=== PATIENT | male | born 2000 | race Caucasian/White ===

== ENCOUNTER → 2023-10-15 | Outpatient (CLI) | payer SELFPAY ==
--- NOTE | 2023-10-15 12:52 | MRI_ITS ---
STUDY: MRI RIGHT KNEE REASON FOR EXAM: Male, 22 years old. Pain. TECHNIQUE: Standardized fat and water weighted pulse sequences were obtained in all 3 orthogonal planes. COMPARISON: Right knee radiographs dated 09/08/2023. FINDINGS: There is a bucket handle tear of the medial meniscus, with a displaced meniscal fragment within the intercondylar notch. Normal hyaline cartilage of the medial femorotibial compartment. Normal medial femoral condyle and tibial plateau. Normal medial collateral ligamentous complex (MCL). Normal distal semimembranosus, gracilis and semitendinosus tendons. Normal lateral meniscus. Normal hyaline cartilage of the lateral femorotibial compartment. Normal lateral femoral condyle and tibial plateau. Normal proximal tibiofibular articulation. Normal lateral collateral ( fibular ) ligament. Normal popliteus tendon. Normal biceps femoris tendon. Normal anterior cruciate ligament (ACL). Normal posterior cruciate ligament (PCL). Normal congruent patellofemoral articulation. Normal hyaline cartilage of the patellofemoral compartment. Normal medial and lateral patellar retinaculum. Normal quadriceps tendon. Normal patellar tendon. Normal Hoffa''s fat pad. There is a moderate volume joint effusion. There is no popliteal cyst. The soft tissues are unremarkable. The otherwise visualized osseous structures are unremarkable. MRI/Lower Ext Joint Only (Routine) IMPRESSION: Bucket-handle tear of the medial meniscus, with a displaced meniscal fragment within the intercondylar notch. Moderate joint effusion. Electronically Signed: Michael Gutierrez MD at 14:12 EST ,
== END | disposition home or self-care (01) ==
PROVIDERS: Referring Provider Orthopaedic Surgery; Visit Provider Orthopaedic Surgery
DX: S83.241A Other tear of medial meniscus, current injury, right knee, initial encounter (principal)
CPT/HCPCS: 73721

== ENCOUNTER 2023-11-16 09:39 | Day surgery (SDC) | payer SELFPAY, OTHER ==
[2023-11-16] VITALS (7 sets, daily range): BP systolic 108–122; BP diastolic 62–77; PULSE 66–89; RESP 16–18; TEMP 36.6–37; O2SAT 99–100; BMI 23.6
[2023-11-16] MEDS: Lactated Ringers 1,000 ML 15 ML IV (10:06)
--- NOTE | 2023-11-16 10:43 | HP.PCM_ITS ---
History and Physical Date of Admission: 11/16/23 [facility] [address] [place] [address] OFFICE VISIT Date of Service: 10/13/23 MR#: [id number] Acct: [id number] Name: JENNY WARD Rep #: [id number] : 2000 Provider: Dr. Bob Verde DO Age/Sex: 22/M Location: [facility] Status: Signed Intake Vital Signs 09/08/2406:57 Height 6 ft 1 in Weight: 185 lb 8 oz BMI 24.5 Intake Visit Reasons: RIGHT KNEE Is patient in pain?: Yes Allergies No Known Allergies Allergy (Unverified 10/13/23 07:58) Medications NK 09/08/23 [History Confirmed 10/13/23] [facility] Social History (Updated 09/08/23 @ 08:02 by Kellee Pfeiffer) household members: family Smoking Status: Never smoker alcohol intake: never HPI RIGHT KNEE Details: This documentation accurately reflects the service provided and the decisions made by me, Dr. Bob Verde, 10/13/23 0748. Part of today?s visit was documented by Kellee MELÉNDEZ, acting as scribe. JENNY WARD is a 22 year old M here today for a followup on his right knee. To recall I did get his MRI report after his last visit and I did receive some of the images however they were not all on the desk. At the time I had a conversation on the phone with him as he was not having any symptoms we decided to let it be. He was doing very well until Patient states that he re-injured his knee playing football about 2 weeks ago (10/02/23). He was unsure of what exactly happened and he did not have a contact however he felt he may have t wisted his knee. He felt a pop at that time, and felt like his knee was locked. He states that he has locking of his knee and after a pop, he can flex his knee. He has subjective knee swelling currently. He has pain over his medial knee. Patient denies any icing or medications. Ortho Exam General General: Yes no acute distress Neurologic: Yes alert Psychologic: Yes reasonable and appropriate Right Knee Skin/Wound: Yes CDI, No erythema, No ecchymosis and No swelling Knee ROM: Yes ROM-Extension -20 to 0 (mild pain) and No ROM-Flexion 0-140 (120) Examination: No Med jt line tenderness, No Lat jt line tenderness, No Crepitus, No Pain with flexion, Yes Pain with extention and Yes Lele's Test Stability: NML: Anterior Drawer, NML: Agapito, NML: Posterior Drawer, NML: Valgus 0, NML: Valgus 30, NML: Varus 0 and NML: Varus 30 Patella Translation: 1 Patella Grind: No KNEE: pain with patellar grind, no patellar instability. Left Knee Patella Translation: 1 Head: Normocephalic Atraumatic Chest: symmetrical rise, non-labored breathing, no audible wheeze Abdomen: no guarding, non-rigid Supplemental Info 09/08/2023 x-ray right knee: No acute findings Coding Level of Care Code Off vis,est,level 3 Diagnoses Tear of medial meniscus of right knee, unspecified tear type, unspecified whether old or current tear, initial encounter S83.241A Encounter type: initial encounter Meniscus tear of knee type: unspecified type Tear current or old: unspecified Assessment and Plan Assessment and Plan (1) Tear of medial meniscus of right knee: Status: Acute Qualifiers: Encounter type: initial encounter Meniscus tear of knee type: unspecif ied type Tear current or old: unspecified Qualified Code(s): S83.241A - Other tear of medial meniscus, current injury, right knee, initial encounter Orders: Orders Lower Ext Joint Only (Routine) Today S83.241A - Other tear of medial meniscus, current injury, right knee, initial encounter Plan Spoke with the patient about a re-injury to his meniscus. He has the locking sensation due to the meniscus being torn. Recommended the patient get a new MRI prior to a possible surgery, as his last one was about 5 months ago and with a new injury and symptoms we want to be prepared for what to expect intraoperatively . He will likely need a meniscectomy vs a repair. Follow up after MRI or sooner if pain, swelling, numbness or associated symptoms, or concerns develop. All questions answered. Patient in agreement of plan. 10/13/23 0834 <Electronically signed by Bob Verde DO> Date Bob Verde DO I have examined the patient the following changes are noted: Repeat MRI was ordered redemonstrating bucket-handle tear medial meniscus tear thorough discussion was had with the patient over the phone in regards to this and recommendations for repair if possible considering his age however we discussed risk benefits and alternatives of repair versus meniscectomy and due to his age and job he does not wish to have a repair done that could increase his downtime postoperatively considering this is a chronic tear there is increased chance of failure after repair. He understands he is at increased risk for accelerated arthritis of the knee with partial meniscectomy and wishes to proceed with partial meniscectomy only.
[2023-11-16] MEDS: Cefazolin 2 GM in 0.9% Normal Saline (100mL Bag) 100 ML IV (11:18)
[2023-11-16] MEDS: Epinephrine (1 mg/ml) 1 MG/ML VIAL (11:53)
[2023-11-16] MEDS: MethylPREDNISolone Acetate 40 MG/ML Vial (12:08)
[2023-11-16] MEDS: Bupivacaine 0.5% PF 10 ML VIAL (12:08)
--- NOTE | 2023-11-16 12:09 | OP.PCM_ITS ---
Operative Report Date of Procedure: 11/16/23 Preop diagnosis: Right knee bucket-handle tear medial meniscus Postoperative diagnosis: Same Procedure: Right knee arthroscopic partial medial meniscectomy Anesthesia: General Estimated blood loss: 5 mL Tourniquet time: 31 minutes 300 mmHg Complications: none Indication for procedure: 22-year-old male patient who has had mechanical symptoms in his knee for years who did have an injury last May did have an MRI at that time which demonstrated medial meniscus tear, he has had some recurrent injuries the patient did wish to proceed with an elective arthroscopic surgery to attempt to alleviate the symptoms. Risk benefits and alternatives of the procedure were reviewed including risk of bleeding infection nerve artery tissue damage need for further surgery continued pain and expected postoperative course. Thorough discussion was had with the patient in regards to partial meniscectomy versus repair and patient wished to proceed with partial meniscectomy only. Procedure: The patient was met in the preoperative holding area. The operative extremity was identified by both patient and physician and family and marked. Patient was brought back to the operating room on a wheeled cart and transferred to the operating table in the supine position. Anesthesia was started. A well- padded tourniquet was placed on the operative extremity. A lower extremity leg woodruff was secured to the operative extremity. The contralateral extremity was well-padded and the end of the bed was flexed to 90 degrees. The patient was prepped and draped in the usual sterile fashion. A timeout was called to ensure the proper patient, procedure, and extremity were being contemplated. 0.5% Marcaine with epinephrine was injected into the planned incisional areas under the skin only. An Esmarch was used to exsanguinate the extremity and the tourniquet was inflated. An 11 blade scalpel was used to make a stab incision in the anterior lateral portal. The arthroscope was inserted into the intercondylar notch and inflow and outflow tubes were attached. Arthroscopic visualization began. The medial compartment was entered. An 18-gauge spinal needle was used to establish the placement for anterior medial portal. An 11 blade scalpel was used to make a stab incision. Blunt probe was inserted followed by a meniscal probe. There was a flipped bucket-handle tear of the medial meniscus and the backside of the meniscus was fairly shredded up with use of arthroscopic biting instruments shaver and a ablating instrument partial medial meniscectomy was performed. The ACL was found to be intact. The lateral compartment was entered was free of meniscal or cartilage pathology The arthroscope was switched to the medial portal to complete the procedure. The medial and lateral gutters were inspected and were free of loose bodies. The patellofemoral joint was inspected and was free of cartilage pathology. There was good patellar tracking. The knee was thoroughly irrigated and drained. An intra-articular injection with 5 cc 0.5% Marcaine plain and 40 mg of Depo-Medrol was injected intra-articularly. The arthroscope was removed the portals were closed with 3-0 nylon arthroscopic stitches. Followed by Xeroform 4 x 4's ABDs web roll and an Martínez wrap. The tourniquet was let down and the drapes were removed. All counts were correct. The patient was brought back to the PACU in stable condition.Right
[2023-11-16] MEDS: Lidocaine 1% /Epi 1:100 (20ml) 20 ML Vial (12:11)
--- NOTE | 2023-11-16 12:13 | EX.PCM.DISCH ---
Discharge Instructions Diet Discharge Diet: No restrictions Activity Weight Bearing Status: Weight bearing as tolerated Dressing / Incision Call your doctor if you observe: Shortness of breath and Chest pain Additional Dressing/Incision Instructions:: Ice and elevate next 72 hours .keep dressing on clean and dry for 48 hours then may remove begin showering daily but do not submerge in tub or pool. After shower may apply Band-Aids . Encourage knee range of motion weightbearing as tolerated, use crutches until confident in knee then may discontinue. No strenuous activity. When not ambulating keep iced and elevated next 72 hours. Do not mix pain medication with recreational drugs or alcohol only take as prescribed can be addictive and abusive, call with any questions or concerns. Follow Up Care Please Follow Up With: Bob Verde DO When: 2 weeks Test Results: Test results from this visit will be discussed in further detail at your follow-up appointment, if applicable. Discharge Plan Admission Primary Reason for Your Visit: Right knee arthroscopy partial medial meniscectomy Attending Provider: Bob Verde Primary Care Provider: George Lizama Discharge Orders/Prescriptions Prescriptions: New acetaminophen [acetaminophen] 500 mg tablet 1,000 mg PO Q6H PRN Qty: 30 0RF oxycodone 5 mg tablet 5 - 10 mg PO Q4H PRN (Reason: pain) 5 Days Qty: 30 0RF Referrals / Follow Up: George Lizama PA-C [Primary Care Provider] - Disposition Disposition (needs filled in before D/C Order can be placed): Home, Self Care
[2023-11-16] MEDS: Oxycodone/Apap 5/325 Tablet PO (13:09)
== END 2023-11-16 13:40 | disposition home or self-care (01) ==
LOC: SDC 09:43 → AC 09:45
PROVIDERS: PCP Physician Assistant; Referring Provider Orthopaedic Surgery; Visit Provider Orthopaedic Surgery
PROC: (CPT 29870; principal; 2023-11-16 10:55)
DX: S83.241A Other tear of medial meniscus, current injury, right knee, initial encounter (principal); Y93.61 Activity, american tackle football
CPT/HCPCS: 29881; 01400; J7120; J2405